=== PATIENT | female | born 1990 | race Two or more races ===

== ENCOUNTER 2025-04-09 01:16 | Emergency (ER) | payer OTHER ==
[~2025-04-09] VITALS: Ht 165.1 cm; Wt 61.2 kg
[2025-04-09] MEDS ORDERED: KETOROLAC TROMETHAMINE 30 MG VIAL IV STA (02:59)
[2025-04-09] MEDS ORDERED: TRAMADOL HCL 50 MG TABLET PO STA (03:00)
[2025-04-09 04:09] LABS: BASO % 0.8 % (0.1-1.2); EOS # 0.13 (0.04-0.54); EOS % 1.7 % (0.7-7.0); LYMPH # 2.12 (1.18-3.74); LYMPH % 28.2 % (19.3-53.1); MEAN PLATELET VOLUME 11.00 fl (9.4-12.4); MONO # 0.71 (0.24-0.82); MONO % 9.4 % (4.7-12.5); NEUT # 4.48 (1.56-6.13); NEUT % 59.6 % (34.0-71.1); RED CELL DISTRIBUTION WIDTH 11.9 % (11.6-14.4)
[2025-04-09 04:14] LABS: INR 1.0
[2025-04-09 04:21] LABS: ALT/SGPT 20.0 U/L (12-78); AST/SGOT 10.0 U/L (15-37); BILIRUBIN TOTAL 0.57 mg/dL (0.3-1.2); BUN CREA RATIO 26.0 (7.0-25.0); CREATININE SERUM 0.65 mg/dL (0.55-1.02); GFR 104.97; GLOBULINA 2.7 G/DL (2.4-3.5); GLUCOSE FASTING 96.0 mg/dL (65-100); HCG QUANTITATIVE 419.0 mUI/mL (1-3); OSMOLALITY SERUM 286.0 MOSM/KG (275-295)
== END 2025-04-09 15:13 | disposition home or self-care (01) ==
LOC: ER 01:16
DX: Z34.90 Encounter for supervision of normal pregnancy, unspecified, unspecified trimester (principal); Z3A.01 Less than 8 weeks gestation of pregnancy; N94.6 Dysmenorrhea, unspecified; R10.2 Pelvic and perineal pain; Z91.018 Allergy to other foods